=== PATIENT | female | born 1945 | race Caucasian/White ===

== ENCOUNTER 2020-05-23 11:49 | Emergency (ER) | payer OTHER, MEDICAID ==
[~2020-05-23] VITALS: Ht 157.5 cm; Wt 105.2 kg
--- NOTE | 2020-05-23 11:50 | NUR ---
PT BIBA ALS TO ER BED 10
[2020-05-23 11:54] VITALS: BP 112/52
--- NOTE | 2020-05-23 12:00 | NUR ---
75/F BIBA FOR SYNCOPE X TODAY WHILE AT [employer]. PT FELT WEAK, LAID ON GROUND, AND BECOME UNCONSCIOUS FOR 10 MIN PER FAMILY. NO TRAUMA/FALL PER EMS. PT C/O WEAKNESS AFTER REGAINING CONSCIOUSNESS, WAS UNABLE TO AMBULATE. EMS REPORTS TEMP 101. PT TRAVELLED BACK FROM [place] YESTERDAY. PT DENIES ANY FEVER, CP, SOB, OR COUGH AT THIS TIME; PATIENT STATES PAIN OF 0/10 AT THIS TIME; VSS; PATIENT POSITIONED FOR COMFORT; HOB ELEVATED; BEDRAILS UP X2; BED DOWN. ER MD MADE AWARE OF PT STATUS. Addendum: 05/23/20 at 1204 by [facility] PER FAMILY MEMBER, PT WAS SEEN IN OUR ER ONE MONTH AGO AND DX WITH DIVERCULITIS. PT IS NOT COMPLIANT TO MEDS FOR HTN AND UNKNOWN COMPLIANCE FOR DIVERCULITIS.
[2020-05-23] MEDS ORDERED: NACL 0.9% 500 ML IV SCH (12:19)
--- NOTE | 2020-05-23 12:42 | NUR ---
ua sent to lab
[2020-05-23 12:52] LABS: BASOPHILS # (AUTO) 0.1 K/uL (0.00-0.22); BASOPHILS % (AUTO) 0.8 % (0.0-2.0); EOSINOPHILS # (AUTO) 0.1 K/uL (0-0.4); EOSINOPHILS % (AUTO) 1.1 % (0.0-4.0); HEMATOCRIT 37.8 % (36-48); HEMOGLOBIN 12.2 g/dL (12.0-16.0); LYMPHOCYTES # (AUTO) 1.8 K/uL (2.5-16.5); LYMPHOCYTES % (AUTO) 15.5 % (20.5-51.1); MEAN CORPUSCULAR HEMOGLOBIN 30 pg (27-31); MEAN CORPUSCULAR HGB CONC 32 g/dL (33-37); MEAN CORPUSCULAR VOLUME 93.7 fL (80-94); MONOCYTES # (AUTO) 1.2 K/uL (0.8-1.0); MONOCYTES % (AUTO) 10.8 % (1.7-9.3); NEUTROPHILS # (AUTO) 8.3 K/uL (1.8-7.7); NEUTROPHILS % (AUTO) 71.8 % (42.2-75.2); PLATELET COUNT (AUTO) 298 K/uL (140-450); RED BLOOD CELL COUNT(AUTO) 4.03 MIL/uL (4.20-5.40); RED CELL DISTRIBUTION WIDTH 16.6 % (11.6-13.7); WHITE BLOOD COUNT (AUTO) 11.6 K/uL (4.8-10.8)
[2020-05-23 13:08] LABS: APPEARANCE,URINE CLEAR (CLEAR); BILIRUBIN,URINE NEGATIVE (NEGATIVE); BLOOD, URINE NEGATIVE (NEGATIVE); COLOR,URINE YELLOW (YELLOW); LEUKOCYTE ESTERASE ,URINE NEGATIVE (NEGATIVE); NITRITE, URINE POSITIVE (NEGATIVE); UGLUCOSE NEGATIVE (NEGATIVE)
[2020-05-23 13:10] LABS: RBC,URINE 0-5 /HPF (0-5); WBC,URINE 0-5 /HPF (0-5)
[2020-05-23 13:14] LABS: ALBUMIN 2.7 g/dL (3.4-5.0); ANION GAP 14.9 (8-16); ASPARTATE AMINOTRANSFERASE 11 U/L (15-37); CHLORIDE 106 mmol/L (98-107); CREATININE 1.2 mg/dL (0.6-1.3); GLUCOSE 87 mg/dL (74-106); POTASSIUM 3.9 mmol/L (3.5-5.1); SODIUM SERUM 145 mmol/L (136-145); TOTAL BILIRUBIN 0.3 mg/dL (0.0-1.0); UREA NITROGEN, BLOOD 32 mg/dL (7-18)
[2020-05-23] MEDS ORDERED: cefTRIAXone 1,000 MG VIAL ONE (13:24)
--- NOTE | 2020-05-23 14:01 | NUR ---
LEFT VOICE MAIL MESSAGE TO [employer] WEAVER @ [phone] TO CLIENT REPORTING ASSOCIATE PT AT OUR ER.
[2020-05-23 14:30] VITALS: BP 113/73
--- NOTE | 2020-05-23 14:30 | NUR ---
Patient discharged with v/s stable. Written and verbal after care instructions given and explained. Patient verbalized understanding. Wheel Chair Assisted with to car. All questions addressed prior to discharge. Advised to follow up with PMD.
== END 2020-05-23 14:30 | disposition home or self-care (01) ==
LOC: MED 11:49
DX: R55 Syncope and collapse (principal); R06.00 Dyspnea, unspecified; R42 Dizziness and giddiness; I10 Essential (primary) hypertension
CPT/HCPCS: 36415; 71045; 80053; 81001; 83880; 84484; 85025; 93005; 96365; 99285; J0696; J7030; Q0092